=== PATIENT | male | born 1955 | race Caucasian/White ===

== ENCOUNTER → 2017-03-14 | Outpatient (CLI) | payer BC ==
[~2017-03-14] MED LIST: AMLO-110 PO; ASPEC325 PO; ATOR-26 PO; VERA120T15 PO
[2017-03-14 13:55] LABS: CHOLESTEROL/HDL RATIO 2.3
== END | disposition home or self-care (01) ==
LOC: C.LABBC 12:04
PROVIDERS: ATTEND Internal Medicine Cardiovascular Disease
DX: I20.1 Angina pectoris with documented spasm (principal); E78.00 Pure hypercholesterolemia, unspecified; I10 Essential (primary) hypertension

== ENCOUNTER 2022-06-03 06:00 | Observation (INO) ==
[2022-06-03] MEDS ORDERED: NITROGLYCERIN 2% OINTMENT 30GM TUBE EXT STA (06:36)
[2022-06-03] MEDS ORDERED: GI COCKTAIL ED USE PO ONE (06:36)
--- NOTE | 2022-06-03 06:40 | Emergency Department Note ---
Impression & Plan Precordial chest pain, SOB (shortness of breath) ED Provider Note NAME: JOHN MARTIN AGE: 67 SEX: M : 1955 ARRIVES VIA: Walk-In INFORMANT: [Patient] ED PROVIDER(S): [Cristiano Pompa MD] CHIEF COMPLAINT: Chest pain, short of breath HISTORY OF PRESENT ILLNESS: The patient is a 67-year-old male with a history of coronary disease. He had influenza A on 11 May, about 3 weeks ago. The patient recovered from this illness. He felt fine the last 3 days and last night. He has not had exertional chest pain or dyspnea. There has been no cough or fever. No respiratory complaints. Patient woke up at 4:00 this morning, 2 and half hours ago, with tightness and heaviness across his chest that was a 4 on a scale of 1- 10. He took some Tums without relief. There was no sweating or radiation of discomfort but he was a bit nauseated. His symptoms are persisting. He present s for evaluation. PMHx/PSHx: See Below SOCIAL HISTORY: See Below. PHYSICAL EXAM: GENERAL: Patient is in no acute distress. HEENT: No acute trauma, normocephalic atraumatic, mucous membranes moist, no nasal congestion. NECK: No stridor, no adenopathy, no meningismus, trachea is midline. LUNGS: A few scattered crackles heard, no wheezing, no respiratory distress. Chest: Nontender chest wall. HEART: Without murmurs gallops or rubs, regular rate and rhythm. ABDOMEN: Soft, mildly tender in the epigastrium, no peritonitis EXTREMITIES: No cyanosis or edema, full range of motion of all the joints without pain or difficulty, no signs for acute trauma. NEUROLOGIC: Oriented x 3, no acute motor or sensory deficits, no focal weakness. SKIN: No rash, no jaundice, no diaphoresis. DIFFERENTIAL DIAGNOSIS: Cardiac ischemia, aortic dissection, pulmonary embolism, pneumothorax, pneumonia, pericarditis, myocarditis, esophageal rupture, GERD, cholecystitis, pancreatitis, musculoskeletal pain, viral illness, as well as other pathologies. EMERGENCY DEPARTMENT COURSE/PROCEDURES: Prior/Outside records reviewed: Previous ED visit, last cardiology visit. ECG per my interpretation: Indication was chest pain and shortness of breath. The ECG shows a normal sinus rhythm with a rate of 65. There is no concerning ST elevation, no PVCs P the QTc is 418. Continuous Cardiac Monitoring per my interpretation: An order was placed for continuous cardiac monitoring. The monitor shows a rate of 66 with normal sinus rhythm. MEDICAL DECISION MAKING: There is no leukocytosis or concerning anemia. There is a normal platelet count. D-dimer was not elevated making PE less likely. No concerning issac ctrolyte abnormality or renal failure. No concerning liver enzyme elevation. ECG showed a normal sinus rhythm, no ischemia. Cardiac enzyme testing x1 does not show evidence for cardiac injury. Follow-up troponin testing is pending. COVID, influenza and RSV test were negative. Chest x-ray does not show pneumonia, mediastinal widening or pneumothorax. On exam, patient did have some epigastric discomfort, no tenderness across the chest wall. Patient was given a GI cocktail with minimal relief. He was given nitroglycerin paste with relief of his discomfort and dyspnea. He feels well at the present. Patient does have some cardiac risk factors, I am concerned for the possibility of angina causing his chest discomfort and shortness of breath. I do think further work-up in the hospital is warranted. I spoke with the patient and case management. The on-call hospitalist was consulted. DISPOSITION: Patient's presentation warrants a hospital stay Past Med/Surg History Medical History (Updated 06/03/22 @ 08:58 by Cristiano Pompa MD) Hyperlipidemia Hypertension Migraine "CLUSTER HEADACHES" Surgical History History of colonoscopy History of open reduction and internal fixation (ORIF) procedure RIGHT INDEX FINGER History of repair of rotator cuff BILATERAL Family History Mother Family history of diabetes mellitus Social History Smoking Status: Current every day smoker Tobacco Type: Cigarettes Cigarettes Per Day: 3 SMALL CIGARS DAILY; Second Hand Exposure: No; Hx Alcohol Use: No Hx Substance Use: No Preferred Language: Faroese Communication Ability: Effective Professor Of Physics Required: No Beliefs That Will Affect Care: None Current Living Situation: Spouse Feels Safe at Home: Yes Assistive Devices: Glasses Allergies Allergies Allergy/AdvReac Type Severity Reaction Status Date / Time No Known Drug Allergies Allergy Verified 02/08/22 14:38 Home Meds Home Medications Medication Instructions Recorded Confirmed nitroglycerin 0.4 mg sublingual 0.4 mg sublingual Q5M PRN 03/13/19 02/08/22 tablet pantoprazole 40 mg tablet,delayed 40 mg PO DAILY 03/13/19 02/08/22 release indomethacin 25 mg capsule 25 mg PO TID 07/18/19 02/08/22 Previous Rx's Medication Instructions Recorded atorvastatin 80 mg tablet 80 mg PO QPM #90 tabs 05/21/20 verapamil 120 mg 24 hr 120 mg PO DAILY #90 caps 05/27/20 capsule,extended release diltiazem HCl 180 mg capsule,24 180 mg PO DAILY #90 caps 05/29/20 hr,extended release albuterol sulfate 90 mcg/actuation 2 inh inhalation Q6H #6.7 grams 05/11/22 aerosol inhaler Results & Data (ED) Vital Signs Vital Signs - 24 hr 06/03/22 06:03 06/03/22 06:27 06/03/22 06:00 Temperature 36.5 C Temperature Source Temporal Artery Scan Pulse Rate 65 Pulse Rate [Apical] Pulse Rate from SpO2 Sensor Respiratory Rate 20 Respiratory Effort / Characteristics Non-Labored Respiratory Depth Normal Blood Pressure 163/89 H Blood Pressure [Right Arm] Blood Pressure Mean 113 Blood Pressure Mean [Right Arm] Pulse Oximetry 99 98 98 Oxygen Delivery Method Room Air Room Air Room Air Sepsis Recent Fever Within 48 Hours No Sepsis New/Unexplained Change in Mental Status No Sepsis Action Taken by Nursing No Action Required 06/03/22 06:00 06/03/22 06:41 06/03/22 07:06 Temperature Temperature Source Pulse Rate 62 Pulse Rate [Apical] 65 Pulse Rate from SpO2 Sensor 61 Respiratory Rate 17 20 Respiratory Effort / Characteristics Non-Labored Non-Labored Spontaneous Respiratory Depth Normal Blood Pressure 160/82 H Blood Pressure [Right Arm] 148/89 H Blood Pressure Mean 108 Blood Pressure Mean [Right Arm] 108 Pulse Oximetry 100 97 Oxygen Delivery Method Room Air Sepsis Recent Fever Within 48 Hours Sepsis New/Unexplained Change in Mental Status Sepsis Action Taken by Nursing 06/03/22 08:33 Temperature Temperature Source Pulse Rate Pulse Rate [Apical] 67 Pulse Rate from SpO2 Sensor Respiratory Rate 18 Respiratory Effort / Characteristics Non-Labored Spontaneous Respiratory Depth Normal Blood Pressure Blood Pressure [Right Arm] 132/81 Blood Pressure Mean Blood Pressure Mean [Right Arm] 98 Pulse Oximetry 95 Oxygen Delivery Method Room Air Sepsis Recent Fever Within 48 Hours Sepsis New/Unexplained Change in Mental Status Sepsis Action Taken by [facility] Medications Current Medication List: was personally reviewed by me Laboratory Data Attestation: I reviewed the patient's lab results. 06/03/22 06:24 06/03/22 06:24 Lab Results 06/03/22 06/03/22 06/03/22 Range/Units 06:10 06:24 06:24 WBC 8.31 (4.8-10.8) K/ul RBC 4.19 L (4.63-6.08) M/uL Hgb 15.7 (14.0-18.0) g/dl Hct 44.2 (40.1-51.0) % MCV 105.5 H (80.0-100.0) fL MCH 37.5 H (25.0-34.0) pg MCHC 35.5 (32.0-36.0) g/dL RDW Std Deviation 55.3 H (36.4-46.3) fL RDW Coeff of Opal 14.2 (11.5-14.5) % Plt Count 175 (130-400) K/uL MPV 10.2 (9.4-12.4) fL Neutrophils % (Manual) 57 % Lymphocytes % (Manual) 23 % Monocytes % (Manual) 21 % Neutrophils # (Manual) 4.74 (1.4-6.5) K/uL Total Absolute Neuts 4.74 (1.4-6.5) K/uL Lymphocytes # (Manual) 1.91 (1.2-3.4) K/uL Total Abs Lymphocytes 1.91 (1.2-3.4) K/uL Monocytes # (Manual) 1.75 H (0.24-0.82) K/uL RBC Morphology Unremarkable D-Dimer (0-500) ug/L FEU Sodium 137 (136-145) mmol/L Potassium 4.0 (3.5-5.1) mmol/L Chloride 102 (98-107) mmol/L Carbon Dioxide 28 (21-32) mmol/L Anion Gap 7 (3-11) BUN 16 (6-23) mg/dl Creatinine 0.84 (0.6-1.4) mg/dl Est Cr Clr Drug Dosing 77.5 ml/min Est GFR ( Amer) 103.5 ml/min Est GFR (Non-Af Amer) 89.3 ml/min BUN/Creatinine Ratio 19.0 (10-20) Glucose 132 H (70-99(Fasting)) mg/dl Calcium 11.2 H (8.5-10.1) mg/dl Total Bilirubin 0.5 (0.2-1.0) mg/dl AST 19 (13-39) U/L ALT 16 (7-52) U/L Alkaline Phosphatase 58 (34-104) U/L Troponin I High Sens 4.0 (0-20) pg/ml Total Protein 7.8 (6.0-8.3) gm/dl Albumin 4.4 (3.4-5.0) gm/dl Globulin 3.4 (2.5-4.0) gm/dl Albumin/Globulin Ratio 1.3 (0.9-2) SARS-CoV-2 (PCR) NEGATIVE (Negative) Influenza Type A (PCR) Negative (Neg) Influenza Type B (PCR) Negative (Neg) RSV (RT-PCR) Negative (Neg) 06/03/22 Range/Units 06:24 WBC (4.8-10.8) K/ul RBC (4.63-6.08) M/uL Hgb (14.0-18.0) g/dl Hct (40.1-51.0) % MCV (80.0-100.0) fL MCH (25.0-34.0) pg MCHC (32.0-36.0) g/dL RDW Std Deviation (36.4-46.3) fL RDW Coeff of Opal (11.5-14.5) % Plt Count (130-400) K/uL MPV (9.4-12.4) fL Neutrophils % (Manual) % Lymphocytes % (Manual) % Monocytes % (Manual) % Neutrophils # (Manual) (1.4-6.5) K/uL Total Absolute Neuts (1.4-6.5) K/uL Lymphocytes # (Manual) (1.2-3.4) K/uL Total Abs Lymphocytes (1.2-3.4) K/uL Monocytes # (Manual) (0.24-0.82) K/uL RBC Morphology D-Dimer 410 (0-500) ug/L FEU Sodium (136-145) mmol/L Potassium (3.5-5.1) mmol/L Chloride (98-107) mmol/L Carbon Dioxide (21-32) mmol/L Anion Gap (3-11) BUN (6-23) mg/dl Creatinine (0.6-1.4) mg/dl Est Cr Clr Drug Dosing ml/min Est GFR ( Amer) ml/min Est GFR (Non-Af Amer) ml/min BUN/Creatinine Ratio (10-20) Glucose (70-99(Fasting)) mg/dl Calcium (8.5-10.1) mg/dl Total Bilirubin (0.2-1.0) mg/dl AST (13-39) U/L ALT (7-52) U/L Alkaline Phosphatase (34-104) U/L Troponin I High Sens (0-20) pg/ml Total Protein (6.0-8.3) gm/dl Albumin (3.4-5.0) gm/dl Globulin (2.5-4.0) gm/dl Albumin/Globulin Ratio (0.9-2) SARS-CoV-2 (PCR) (Negative) Influenza Type A (PCR) (Neg) Influenza Type B (PCR) (Neg) RSV (RT-PCR) (Neg) Administered Medications Discontinued Medications Al Hydrox/Mg Hydrox/Simethicone (Gi Cocktail Ed Use) 1 dose PO ONE ONE Stop: 06/03/22 06:37 Last Admin: 06/03/22 06:42 Dose: 1 dose Documented By: EVELIN Nitroglycerin (Nitroglycerin 2% Ointment 30gm Tube) 1 inch EXT NOW STA Stop: 06/03/22 06:37 Last Admin: 06/03/22 06:42 Dose: 1 inch Documented By: EVELIN Imaging Data Radiologist's Impression: Chest X-Ray 06/03/22 06:27 XR chest 1V portable HISTORY: Dyspnea COMPARISON: Chest 05/11/2022. FINDINGS: The lungs are clear. Cardiac silhouette is normal in size. No pleural effusions. No pneumothorax. IMPRESSION: No acute process. ACT 112: Negative or not required by law. Electronically signed by: Martínez Dawkins M.D. 06/03/2022 7:38 AM Discharge Plan Visit Data Chief Complaint: Respiratory Problems Stated Complaint: TROUBLE BREATHING ED Provider: Cristiano Pompa Discharge Problem: Precordial chest pain, SOB (shortness of breath) Patient Disposition: Admitted As Inpatient Condition: Fair Forms Stand Alone Forms: My [facility] Prescriptions Prescriptions: No Action atorvastatin 80 mg tablet 80 mg PO QPM Qty: 90 3RF verapamil 120 mg capsule,ext rel. pellets 24 hr 120 mg PO DAILY Qty: 90 3RF diltiazem HCl 180 mg capsule,extended release 24 hr 180 mg PO DAILY Qty: 90 3RF pantoprazole 40 mg tablet,delayed release (DR/EC) 40 mg PO DAILY nitroglycerin 0.4 mg tablet, sublingual 0.4 mg SL Q5M PRN indomethacin 25 mg capsule 25 mg PO TID albuterol sulfate 90 mcg/actuation HFA aerosol inhaler 2 inh inhalation Q6H Qty: 6.7 0RF Referrals Referrals: Louann Tyson DO [Primary Care Provider] -
[2022-06-03 06:49] LABS: Hematocrit (blood only) 44.2 % (40.1-51.0); Hemoglobin 15.7 g/dl (14.0-18.0); Mean Corpuscular Hemoglobin 37.5 pg (25.0-34.0); Mean Corpuscular Hgb Conc 35.5 g/dL (32.0-36.0); Mean Corpuscular Volume 105.5 fL (80.0-100.0); Mean Platelet Volume 10.2 fL (9.4-12.4); Platelet Count 175 K/uL (130-400); RDW Coefficient of Variation 14.2 % (11.5-14.5); RDW Standard Deviation 55.3 fL (36.4-46.3); Red Blood Count 4.19 M/uL (4.63-6.08); White Blood Count 8.31 K/ul (4.8-10.8)
[2022-06-03 07:15] LABS: D Dimer 410 ug/L FEU (0-500)
[2022-06-03 07:17] LABS: Influenza A virus by PCR Negative (Neg); Influenza B virus by PCR Negative (Neg); RSV by PCR Negative (Neg); SARS CoV2 RNA(COVID-19) Ceph NEGATIVE (Negative)
[2022-06-03 07:19] LABS: ALC (manual) 1.91 K/uL (1.2-3.4); ANC (manual) 4.74 K/uL (1.4-6.5); Lymphocytes # (manual) 1.91 K/uL (1.2-3.4); Lymphocytes % (manual) 23 %; Monocytes # (manual) 1.75 K/uL (0.24-0.82); Monocytes % (manual) 21 %; Neutrophils # (manual) 4.74 K/uL (1.4-6.5); Neutrophils % (manual) 57 %; RBC Morphology Unremarkable
--- NOTE | 2022-06-03 07:40 | XRay Report ---
XR chest 1V portable HISTORY: Dyspnea COMPARISON: Chest 05/11/2022. FINDINGS: The lungs are clear. Cardiac silhouette is normal in size. No pleural effusions. No pneumot horax. IMPRESSION: No acute process. ACT 112: Negative or not required by law. Electronically signed by: Martínez Dawkins M.D. 06/03/2022 7:38 AM
[2022-06-03 08:32] LABS: Albumin Globulin Ratio 1.3 (0.9-2); Albumin Level 4.4 gm/dl (3.4-5.0); Bilirubin,Total 0.5 mg/dl (0.2-1.0); Calcium 11.2 mg/dl (8.5-10.1); Creatinine Clr Calc Pharmacy 77.5 ml/min; Est GFR (African American) 103.5 ml/min; Est GFR (Non-African American) 89.3 ml/min; Globulin 3.4 gm/dl (2.5-4.0); Total Protein 7.8 gm/dl (6.0-8.3)
[2022-06-03] MEDS ORDERED: ONDANSETRON INJ 2 MG/ML 2 ML VIAL IV PRN (09:20)
[2022-06-03] MEDS ORDERED: ACETAMINOPHEN 325 MG TAB PO PRN (09:20)
[2022-06-03] MEDS ORDERED: POLYETHYLENE (MIRALAX) 17 GM PACK PO PRN (09:20)
--- NOTE | 2022-06-03 09:20 | Electrocardiogram Report ---
Test Reason : Blood Pressure : / mmHG Vent. Rate : 065 BPM Atrial Rate : 065 BPM P-R Int : 160 ms QRS Dur : 086 ms QT Int : 402 ms P-R-T Axes : 072 052 069 degrees QTc Int : 418 ms Normal sinus rhythm Normal ECG When compared with ECG of 11-MAY-2022 09:27, Premature supraventricular complexes are no longer Present Confirmed by Anton Ponce ([id number]) on 06/03/2022 9:19:25 AM Referred By: REFERRED SELF Confirmed By:Anton Ponce
--- NOTE | 2022-06-03 10:18 | History & Physical Report ---
Date of Service June 03, 2022 Assessment & Plan (1) Precordial chest pain: (2) Prinzmetal's angina: (3) Hypercalcemia: Plan: Calcium elevated 11.2 on admission (previously 9.6 in 06/12). Does not appear dehydrated on exam Added PTH level (4) Hypertension: Plan: Normotensive. Continue diltiazem (5) Dyslipidemia: Plan: Continue high intensity statin (6) Cluster headache syndrome: Plan: Follows with [facility] [place] [place] neurology for monthly Emgality injections, rizatriptan PRN (7) JAYCE (generalized anxiety disorder): Plan: Continue Duloxetine (8) Tobacco use: Plan: Smoking cessation recommended DVT Ppx: SQ heparin Code status: FULL PCP: Jah Dispo: Obs PCU Patient seen in collaboration with Dr. Simms. Please see addendum. History of Present Illness Chief Complaint: Chest pain Primary Care Provider: Louann Tyson, DO This is a 67-year-old male with PMH of Prinzmetal's angina, CAD, cluster headache syndrome, hyperlipidemia, hypertension, tobacco use and other medical problems listed below who presents with chest pain since early this morning. Patient recently had the flu over Becky time but was back to normal state of health until this morning when he woke up around 0400 with chest pressure on left side of chest. States that pain was an 8/10 heavy pressure that was nonradiating but associated with inability to catch his breath and nausea. D enies any lightheadedness, near syncope or diaphoresis. Pain persisted until he was given Nitropaste in the ED at which point it completely resolved. Did not have any nitroglycerin at home to take because he has not had chest pain like this in years. Continues to smoke a pack of small cigars daily. No alcohol use. Is taking all medications as prescribed. Also follows with [facility] neurology for cluster headaches and receives injection of Emgality monthly. No fever, chills, dizziness, chest pain, palpitations, shortness of breath, nausea, vomiting, abdominal pain, dysuria, diarrhea constipation. Comfortable at rest. 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 Last underwent a an exercise stress test over 10 years ago that was normal. Allergies Allergy/AdvReac Type Severity Reaction Status Date / Time No Known Drug Allergies Allergy Verified 02/08/22 14:38 Home Medications Medication Instructions Recorded Confirmed Type atorvastatin 80 mg tablet 80 mg PO QPM #90 tabs 05/21/20 06/03/22 Rx aspirin 81 mg capsule 81 mg PO DAILY #30 caps 06/03/22 Rx diltiazem HCl 120 mg 120 mg PO DAILY 06/03/22 06/03/22 History capsule,extended release 24 hr duloxetine 30 mg capsule,delayed 30 mg PO DAILY 06/03/22 06/03/22 History release galcanezumab-gnlm 300 mg/3 mL (100 300 mg subcut Q1M 06/03/22 06/03/22 History mg/mL x 3) subcutaneous syringe (Emgality) nitroglycerin 0.4 mg sublingual 0.4 mg sublingual Q5M PRN Chest 06/03/22 Rx tablet Pain #25 tabs rizatriptan 10 mg disintegrating 10 mg PO UD 06/03/22 06/03/22 History tablet Past Med/Surg History Medical History Acid reflux Cluster headache syndrome Dyslipidemia JAYCE (generalized anxiety disorder) GERD (gastroesophageal reflux disease) Hypertension Prinzmetal's angina (2009) Syncope and collapse Tobacco use Surgical History H/O cataract removal with insertion of prosthetic lens History of arthroscopy of shoulder History of colonoscopy History of open reduction and internal fixation (ORIF) procedure RIGHT INDEX FINGER History of repair of rotator cuff BILATERAL Family History Mother Family history of diabetes mellitus Other Heart disease Social History Smoking Status: Current every day smoker Tobacco Type: Cigarettes Cigarettes Per Day: 3 SMALL CIGARS DAILY; Second Hand Exposure: No; Hx Alcohol Use: No Hx Substance Use: No Preferred Language: Lebanese Communication Ability: Effective Masonry Contractor Required: No Beliefs That Will Affect Care: None Current Living Situation: Spouse Feels Safe at Home: Yes Assistive Devices: Glasses Review of Systems Review of Systems: At least ten systems reviewed and negative except as noted in the HPI. Physical Exam Physical Exam: General Appearance: WD/WN, vitals as above, NAD, sitting up in bed, pleasant, conversing easily Head: normocephalic, atraumatic Eyes: normal inspection, PERRL, conjunctivae normal, anicteric sclerae ENT: external ear and nose normal, oropharynx normal Neck: normal visual inspection, trachea midline, no thyromegaly Respiratory: normal respiratory effort, lungs clear to auscultation, no wheeze, rales, rhonchi. No accessory muscle use Cardiovascular: regular rate, rhythm, no murmur, normal peripheral pulses, no BLE edema. Vessels: no JVD Chest: normal inspection of chest. + nitro paste on L chest wall Abdomen/GI: normal bowel sounds, soft, nontender, no hepatosplenomegaly Extremities/Musculoskeletal: no cyanosis or clubbing, extremities motor strength 5/5 Neurologic: PERRL, EOMI, accommodation nl, no face palsy, no dysarthria, CN's II-XI intact bilaterally and moves all extremities Psychiatric: A+Ox3, euthymic affect Skin: no rashes, normal color, warm/dry Results & Data Results & Data ([facility]) Vital Signs (Past 12 Hours) Vital Signs Temp Pulse Pulse Resp BP BP Pulse Ox 06/03/22 09:54 72 18 114/76 95 06/03/22 08:33 67 18 132/81 95 06/03/22 07:06 65 20 148/89 H 97 06/03/22 06:41 62 17 160/82 H 100 06/03/22 06:00 98 06/03/22 06:27 98 06/03/22 06:03 36.5 C 65 20 163/89 H 99 O2 Del Method 06/03/22 09:54 Room Air 06/03/22 08:33 Room Air 06/03/22 07:06 Room Air 06/03/22 06:41 06/03/22 06:00 Room Air 06/03/22 06:27 Room Air 06/03/22 06:03 Room Air Laboratory Results Short CBC 06/03/22 Range/Units 06:24 WBC 8.31 (4.8-10.8) K/ul Hgb 15.7 (14.0-18.0) g/dl Hct 44.2 (40.1-51.0) % Plt Count 175 (130-400) K/uL BMP 06/03/22 06:24 Sodium 137 Potassium 4.0 Chloride 102 Carbon Dioxide 28 BUN 16 Creatinine 0.84 Glucose 132 H Calcium 11.2 H Liver Function 06/03/22 Range/Units 06:24 Total Bilirubin 0.5 (0.2-1.0) mg/dl AST 19 (13-39) U/L ALT 16 (7-52) U/L Alkaline Phosphatase 58 (34-104) U/L Albumin 4.4 (3.4-5.0) gm/dl Diagnostic Findings Chest X-Ray 06/03/22 06:27 XR chest 1V portable HISTORY: Dyspnea COMPARISON: Chest 05/11/2022. FINDINGS: The lungs are clear. Cardiac silhouette is normal in size. No pleural effusions. No pneumothorax. IMPRESSION: No acute process. ACT 112: Negative or not required by law. Electronically signed by: Martínez Dawkins M.D. 06/03/2022 7:38 AM ECG Additional Comments: I personally reviewed EKG which shows normal sinus rhythm at 65 bpm. Supraventricular complexes no longer present from previous Code Status & VTE Plan VTE Prophylaxis Plan VTE Prophylaxis will be ordered: Yes Supervising Physician Co-Signing Physician Notes I have seen and examined the patient and have discussed the case with the provider above. I agree with the assessment and plan as stated. My physical exam was performed post stress test and was within normal limits. He is an athletic appearing man who appears younger than stated age. Physical exam was otherwise unremarkable. Please see documentation on discharge summary same day. DO Mendez
--- NOTE | 2022-06-03 13:02 | XCELERA ---
[id number] \\[id number]
--- NOTE | 2022-06-03 13:19 | Cardiology Consultation ---
Date of Consultation June 03, 2022 Assessment & Plan (1) Precordial chest pain: Etiology uncertain, stress echocardiogram this morning was without evidence for inducible ischemia at very high workload, making occlusive coronary artery disease extremely unlikely. Although Prinzmetal's angina is a possibility, an ECG obtained during symptoms when he presented did not show the expected ST elevation or other electrocardiographic abnormalities. Nonetheless, given his history, response to nitroglycerin, and lack of an alternative explanation, recommended that he utilize sublingual nitroglycerin if he has any recurrent chest discomfort. I will send in a prescription for sublingual nitroglycerin to his pharmacy, since the dosing he currently has is over a decade old. Esophageal spasm is another possible explanation, since this too would respond to sublingual nitroglycerin. However, he has not had any recent reflux symptoms to suggest the need for a proton pump inhibitor. If he does have further symptoms, GI evaluation of potential reflux might be pursued. (2) Prinzmetal's angina: As above. Chronically on diltiazem, continue this. As noted, will renew his sublingual nitroglycerin prescription. (3) Non-occlusive coronary artery disease: Per 2010 cath. No inducible ischemia currently. Continue risk factor management. Given known coronary artery disease, he should take a daily aspirin 81 mg, not currently on his med list (he may take this [id number] but would double check). (4) Dyslipidemia: Excellent lipid control with LDL of 65 on maximal dose statin (atorvastatin 80 mg daily). 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 Tin Ervin. History of Present Illness Reason for Consultation: Chest pain Requesting Physician: Tisha Simms DO Attending Physician: Tisha Simms DO History of Present Illness 67-year-old man with longstanding history of Prinzmetal angina and nonocclusive coronary artery disease (catheterization at [facility] 2009 with 30% RCA stenosis and inducible spasm) who had influenza 1 month ago but who had been doing well since until this morning when he awoke with chest discomfort relieved after 1 hour with nitroglycerin in the emergency department. 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 After an ER visit for influenza 1 month ago, he felt that he had fully recovered and denied any dyspnea, cough, or chest discomfort. He woke from sleep with a sense of n eeding to catch his breath and 8/10 pressure type chest pain located centrally. The chest pain had no radiation, and had neither pleuritic nor positional components. No palpitations, presyncope, or syncope. He denies any recent reflux type symptoms, but does have a remote history of GERD. Symptoms resolved to 10 to 15 minutes after receiving sublingual nitroglycerin/Nitropaste in the emergency department. No subsequent symptoms, he has felt fine since. ECG (apparently obtained during chest discomfort) showed sinus rhythm and was completely unremarkable, high-sensitivity troponin was negative x2. Given absence of evidence for acute cardiac process, he subsequently underwent a stress echocardiogram this morning which showed no evidence of infarct or ischemia at 88% maximum predicted heart rate and high workload (10 minutes on a Luis Felipe protocol). No symptoms, ECG changes, or echocardiographic abnormalities. At the time of my evaluation, the patient was completely comfortable and had no somatic complaints. Allergies Allergy/AdvReac Type Severity Reaction Status Date / Time No Known Drug Allergies Allergy Verified 02/08/22 14:38 Home Medications Medication Instructions Recorded Confirmed Type nitroglycerin 0.4 mg sublingual 0.4 mg sublingual Q5M PRN Chest 03/13/19 06/03/22 History tablet Pain atorvastatin 80 mg tablet 80 mg PO QPM #90 tabs 05/21/20 06/03/22 Rx diltiazem HCl 120 mg 120 mg PO DAILY 06/03/22 06/03/22 History capsule,extended release 24 hr duloxetine 30 mg capsule,delayed 30 mg PO DAILY 06/03/22 06/03/22 History release galcanezumab-gnlm 300 mg/3 mL (100 300 mg subcut Q1M 06/03/22 06/03/22 History mg/mL x 3) subcutaneous syringe (Emgality) rizatriptan 10 mg disintegrating 10 mg PO UD 06/03/22 06/03/22 History tablet Patient History Medical History Acid reflux Cluster headache syndrome Dyslipidemia JAYCE (generalized anxiety disorder) GERD (gastroesophageal reflux disease) Hypertension Prinzmetal's angina (2009) Syncope and collapse Tobacco use Surgical History H/O cataract removal with insertion of prosthetic lens History of arthroscopy of shoulder History of colonoscopy History of open reduction and internal fixation (ORIF) procedure RIGHT INDEX FINGER History of repair of rotator cuff BILATERAL Family History Mother Family history of diabetes mellitus Other Heart disease Social History Smoking Status: Current every day smoker Tobacco Type: Cigarettes Cigarettes Per Day: 3 SMALL CIGARS DAILY; Second Hand Exposure: No; Hx Alcohol Use: No Hx Substance Use: No Preferred Language: Slovak Communication Ability: Effective Underground Utility Locator Required: No Beliefs That Will Affect Care: None Current Living Situation: Spouse Feels Safe at Home: Yes Assistive Devices: Glasses Physical Exam Physical Exam: Very fit appearing adult white male in no distress. Afebrile. BP 131/86 mmHg. Pulse 68 bpm and regular. Skin: no ecchymoses or generalized lesions. HEENT: unremarkable. Neck: no JVD or carotid bruits. Lungs: clear. Cardiac: regular rhythm, normal S1 and S2 no murmur or gallop. Abdomen: benign. Extremities: no edema, peripheral pulses intact. Neurologic: normal affect and conversation, nonfocal. Results & Data ([facility]) Laboratory Results High-sensitivity troponin 4.0 and 2.9. Normal electrolytes, BUN 16, creatinine 0.84. Normal CBC. Diagnostic Findings ECG showed sinus rhythm and was unremarkable. Chest x-ray unremarkable. Stress echocardiogram negative for infarct or ischemia. PG Care Time/CCT Total # of Minutes Spent Total Time Spent with Patient: Total time spent is greater than 50% in coordination of care (as documented) at patient's floor/unit and/or counseling patient: Coding Level of Care Code INP/OBS CONSULT LVL 4, 60 MIN Diagnoses Precordial chest pain R07.2 Prinzmetal's angina I20.1 Non-occlusive coronary artery disease I25.10 Dyslipidemia E78.5
--- NOTE | 2022-06-03 13:41 | Discharge Summary ---
Date of Service June 03, 2022 Admission HPI Per Admitting Provider This is a 67-year-old male with PMH of Prinzmetal's angina, CAD, cluster headache syndrome, hyperlipidemia, hypertension, tobacco use and other medical problems listed below who presents with chest pain since early this morning. Patient recently had the flu over Becky time but was back to normal state of health until this morning when he woke up around 0400 with chest pressure on left side of chest. States that pain was an 8/10 heavy pressure that was nonradiating but associated with inability to catch his breath and nausea. Denies any lightheadedness, near syncope or diaphoresis. Pain persisted until he was given Nitropaste in the ED at which point it completely resolved. Did not have any nitroglycerin at home to take because he has not had chest pain like this in years. Continues to smoke a pack of small cigars daily. No alcohol use. Is taking all medications as prescribed. Also follows with [facility] neurology for cluster headaches and receives injection of Emgality monthly. No fever, chills, dizziness, chest pain, palpitations, shortness of breath, nausea, vomiting, abdominal pain, dysuria, diarrhea constipation. Comfortable at rest. 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 Last underwent a an exercise stress test over 10 years ago that was normal. Admission Exam Per Admitting Provider General Appearance: WD/WN, vitals as above, NAD, sitting up in bed, pleasant, conversing easily Head: normocephalic, atraumatic Eyes: normal inspection, PERRL, conjunctivae normal, anicteric sclerae ENT: external ear and nose normal, oropharynx normal Neck: normal visual inspection, trachea midline, no thyromegaly Respiratory: normal respiratory effort, lungs clear to auscultation, no wheeze, rales, rhonchi. No accessory muscle use Cardiovascular: regular rate, rhythm, no murmur, normal peripheral pulses, no BLE edema. Vessels: no JVD Chest: normal inspection of chest. + nitro paste on L chest wall Abdomen/GI: normal bowel sounds, soft, nontender, no hepatosplenomegaly Extremities/Musculoskeletal: no cyanosis or clubbing, extremities motor strength 5/5 Neurologic: PERRL, EOMI, accommodation nl, no face palsy, no dysarthria, CN's II-XI intact bilaterally and moves all extremities Psychiatric: A+Ox3, euthymic affect Skin: no rashes, normal color, warm/dry Principal Diagnosis chest pain Discharge Exam General Appearance: WD/WN, vitals as above, NAD, sitting up in bed, pleasant, conversing easily Head: normocephalic, atraumatic Eyes: normal inspection, PERRL, conjunctivae normal, anicteric sclerae ENT: external ear and nose normal, oropharynx normal Neck: normal visual inspection, trachea midline, no thyromegaly Respiratory: normal respiratory effort, lungs clear to auscultation, no wheeze, rales, rhonchi. No accessory muscle use Cardiovascular: regular rate, rhythm, no murmur, normal peripheral pulses, no BLE edema. Vessels: no JVD Chest: normal inspection of chest. + nitro paste on L chest wall Abdomen/GI: normal bowel sounds, soft, nontender, no hepatosplenomegaly Extremities/Musculoskeletal: no cyanosis or clubbing, extremities motor strength 5/5 Neurologic: PERRL, EOMI, accommodation nl, no face palsy, no dysarthria, CN's II-XI intact bilaterally and moves all extremities Psychiatric: A+Ox3, euthymic affect Skin: no rashes, normal color, warm/dry Discharge Data Allergies Allergy/AdvReac Type Severity Reaction Status Date / Time No Known Drug Allergies Allergy Verified 02/08/22 14:38 Consultations 06/03/22 08:49 ED Decision to Admit Stat 06/03/22 09:25 Consult Cardiology Routine Hospital Course (1) Precordial chest pain: (2) Prinzmetal's angina: (3) Hypercalcemia: (4) Hypertension: (5) Dyslipidemia: (6) Cluster headache syndrome: (7) JAYCE (generalized anxiety disorder): (8) Tobacco use: Plan This is a 67-year-old male with PMH of Prinzmetal's angina, CAD, cluster headache syndrome, hyperlipidemia, hypertension, tobacco use, recent influenza and other medical problems listed below who presents with chest pain since early this morning that resolved with nitro paste. Risk factors include HTN, HLD, ongoing tobacco use, age. Follows with Dr. Ervin with h/o Prinzmetal's angina and known 30% blockage of RCA on cardiac catheterization at [facility] 10 years ago. Initial ECG without acute ST changes. High-sensitivity troponin negative x2. Chest x-ray without acute process. Discussed with Dr. Ponce, who recommended exercise stress test today, which was negative for inducible ischemia. Sublingual nitroglycerin tabs refilled by Dr. Ponce, who also recommends patient starts 81 mg aspirin daily due to h/o nonocclusive CAD. Continue following with biomedical engineer Dr. Ervin upon discharge. Smoking cessation recommended. Also set up for hospital follow-up with PCP. Noted to have elevated calcium of 11.2 (previously 9 on outpatient labs from 06/13) and will need to follow-up with PCP for further lab work and work-up. Patient comfortable and hemodynamically stable at time of discharge. Total Time Total Time Spent Total Time Spent (In Minutes): 35 Discharge Plan Discharge Items Patient Disposition: Home - Self-Care Reason For Visit: CP RULE OUT Discharge Diagnosis: Precordial chest pain Condition on Discharge: Good Activity: Resume your previous activity Non-emergency contact: Primary Care Provider Call non-emergency contact if: you have any medication questions, your symptoms worsen, your pain is not controlled and your pain is concerning for you Follow-up/Referrals: oLuann Tyson DO [Primary Care Provider] - (Date & Time 06/09/2022 11:00 AM Provider Louann Tyson DO Department [facility] ) Diet: Heart Healthy Addtl Attending Provider Instructions: You were admitted for chest pain that resolved with nitroglycerin paste in ER. Based on risk factors, an exercise stress echo was indicated to rule out abnormalities. This test had normal results. Dr. Ponce evaluated you and refilled nitroglycerin tablets to use as needed for chest pain and also recommended you start a baby aspirin. Please continue all other home medications and follow-up with Dr. Ervin. Recommend smoking cessation. You were also found to have an elevated calcium of 11.2. Please follow up with Dr. Tyson for further labwork. SUMMARY OF TEST RESULTS: Normal exercise stress echocardiogram RECOMMENDATIONS FOR FOLLOW-UP: Please follow up with Dr. Tyson as above as well as Dr. Ervin OTHER INSTRUCTIONS: Seek medical attention if you have: * temperature above 101 * chest pain or trouble breathing * abdominal pain, nausea, vomiting * diarrhea, dark stools or bloody stools * any unanswered questions or concerns Call 911 if symptoms are severe. Please take good care of yourself. Call if you have any questions or problems. You can reach a [facility] hospitalist on duty at [facility] 24 hours a day by calling [phone]. Pending Studies at Discharge: No Stand-Alone Forms: My [facility], Smoking Cessation Medications and DC Order Prescriptions: New aspirin 81 mg capsule 81 mg PO DAILY Qty: 30 0RF Continued atorvastatin 80 mg tablet 80 mg PO QPM Qty: 90 3RF duloxetine 30 mg capsule,delayed release(DR/EC) 30 mg PO DAILY diltiazem HCl 120 mg capsule,extended release 24hr 120 mg PO DAILY rizatriptan 10 mg tablet,disintegrating 10 mg PO UD Rx Instructions: take as needed, no more than 2x in one day Emgality Syringe 300 mg/3 mL (100 mg/mL x 3) syringe 300 mg SUBCUT Q1M Rx Instructions: takes on of every month nitroglycerin 0.4 mg tablet, sublingual 0.4 mg SL Q5M PRN (Reason: Chest Pain) Qty: 25 3RF Discharge Orders: Discharge Order (Routine); Ordered 06/03/22 Ordered By: Tisha Simms Admission Data Admit Date/Time: 06/03/22 09:20 Attending Provider: Tisha Simms Admit Provider: Tisha Simms Primary Care Provider: Louann Tyson Other Providers: Tisha Simms ; Anton Ponce Other Interventions: Discharge Summary Assessment (RN) Last Done: 06/03/22 13:59 Supervising Physician Co-Signing Physician Notes I have seen and examined the patient and have discussed the case with the provider above. I agree with the assessment and plan as stated. The patient is a 67-year-old male smoker who presents with chest pain. This was resolved with sublingual nitroglycerin and his highly sensitive troponin was negative. He underwent a stress echocardiogram today and exercise capacity was above average. His stress EKG response was normal and no arrhythmia was noted with stress. The left ventricular ejection fraction increased normally with stress and his left ventricular end systolic cavity size reduced post-rest which was a normal response. There was no abnormal left ventricular wall motion abnormality noted. He recovered well and was discharged in stable condition with close primary care follow-up recommended. Notably he has an elevated calcium level of 11.2 with a upper reference range on the current lab of 10.1. He also has a macrocytosis that is unexplained. He denies any consistent alcohol use. Further work-up for these issues is recommended with his primary care provider. A appointment was made for him within the next week prior to his discharge. He also verbalized understanding of the strong recommendation for complete smoking cessation. 1 other issue we discussed with his ongoing issue with external hemorrhoids. He states that anytime he is on blood thinners, his bleeding per rectum is a problem. We discussed the possibility of seeing a colorectal surgeon as outpatient and considering banding. His was present during this discussion and they will pursue this further with his primary care doctor. DO Mendez
[2022-06-03] MEDS ORDERED: HEPARIN SOD 5,000 UNIT/0.5 ML VIAL SQ SCH (14:00)
== END 2022-06-03 14:00 | disposition home or self-care (01) ==
LOC: ED 06:00 → EDINP 06:00